=== PATIENT | female | born 1950 | race Caucasian/White ===

== ENCOUNTER 2016-04-01 | Outpatient (CLI) | payer BC | END 2016-04-01 17:32 | disposition critical access hospital (66) | CPT/HCPCS: A0425; A0429 ==

== ENCOUNTER 2016-04-01 17:40 | Emergency (ER) | payer BC ==
[2016-04-01] MEDS ORDERED: EPINEPHrine 1 MG/ML AMP ONE (17:53)
[2016-04-01] MEDS ORDERED: methylPREDNISolone SUCCINATE 125 MG/2 ML VIAL IVP STA (17:57)
[2016-04-01] MEDS ORDERED: EPINEPHrine 1 MG/ML AMP IM STA (17:57)
[2016-04-01] MEDS ORDERED: methylPREDNISolone SUCCINATE 125 MG/2 ML VIAL IVP ONE (17:59)
[2016-04-01] MEDS ORDERED: predniSONE 20 MG TABLET PO STA (23:09)
[2016-04-01] MEDS ORDERED: predniSONE 20 MG TABLET ONE (23:12)
== END 2016-04-01 23:32 | disposition home or self-care (01) ==
DX: T78.2XXA Anaphylactic shock, unspecified, initial encounter (principal); I48.91 Unspecified atrial fibrillation
CPT/HCPCS: 96372; 96374; 99284; J7512

== ENCOUNTER 2019-11-19 11:50 | Outpatient (CLI) | payer MEDICARE, OTHER | END 2019-11-19 23:59 | disposition home or self-care (01) | LOC: COV 11:50 | PROVIDERS: ATTEND Family Medicine | DX: Z20.828 Contact with and (suspected) exposure to other viral communicable diseases (principal) ==

== ENCOUNTER 2021-01-15 08:00 | Outpatient (CLI) | payer MEDICARE, OTHER ==
--- NOTE | 2021-01-15 16:10 | XRAY Report ---
PROCEDURE: Wrist 4 View LT INDICATIONS: PAIN IN LEFT WRIST TECHNIQUE: 4 views of the wrist were acquired. COMPARISON: None. FINDINGS: Bones: There is an osseous fragment in the dorsal aspect of wrist, suspicious for a triquetral fract ure. No dislocations. No suspicious bony lesions. Scaphoid view: Scaphoid appears intact. Soft tissues: No suspicious soft tissue calcifications. Soft tissue swelling in the dorsal aspect o f the wrist. IMPRESSION: 1. An osseous fragment is seen in the dorsal aspect of the wrist, suspicious for a fracture of trique trum. If clinically indicated, CT or MRI may be helpful. 2. Soft tissue swelling. Reviewed by: Cat García MD on 01/15/2021 4:08 PM PST Approved by: aCt García MD on 01/15/2021 4:08 PM PST Station ID: [id number]
== END 2021-01-15 23:59 | disposition home or self-care (01) ==
LOC: DI.S 08:00
PROVIDERS: ATTEND Physician Assistant
DX: M25.532 Pain in left wrist (principal); R93.6 Abnormal findings on diagnostic imaging of limbs; R93.89 Abnormal findings on diagnostic imaging of other specified body structures